=== PATIENT | male | born 1975 | race Caucasian/White ===

== ENCOUNTER 2022-07-25 17:56 | Emergency (ER) | payer SELFPAY ==
[2022-07-25] VITALS (7 sets, daily range): BP systolic 111–162; BP diastolic 72–108; PULSE 93–104; RESP 17–20; TEMP 36.6–37; O2SAT 93–96; BMI 29.0
--- NOTE | 2022-07-25 19:01 | ED_ITS ---
HPI - Alcohol General Chief Complaint: ETOH/Substance Use Stated Complaint: etoh Time Seen by Provider: 07/25/22 17:57 Source: EMS Mode of arrival: EMS Limitations: other (Intoxicated) History of Present Illness HPI narrative: Patient comes to the emergency room via ambulance. Bystanders found the patient sleeping in the hallway of his apartment. Since the patient can find he skis, lower himself down and took a nap. Patient states that he does not remember falling. Patient has been drinking. Seems that on arrival of EMS and PD, patient was combative. By the time that he reach emergency room, patient, co operative. Patient is significantly intoxicated but still able to answer some questions. Denies SI or HI. Related Data Allergies Allergy/AdvReac Type Severity Reaction Status Date / Time No Known Allergies Allergy Unverified 02/28/20 16:59 Review of Systems Review of Systems: Constitutional : No Weight loss, No Fever, No Chills, No Night Sweats, No Fatigue, No Malaise ENT/Mouth : No Hearing loss, No Ear Pain, No Nasal Congestion, No Sinus Pain, No Hoarseness, No sore throat, No Rhinorrhea, No Swallowing Difficulty Eyes: No Eye Pain, No Swelling, No Redness, No Foreign Body, No Discharge, No Vision Changes Cardiovascular : No Chest Pain, No SOB, No Dyspnea on Exertion, No Orthopnea, No Edema, No Palpitations Respiratory : No Cough, No Sputum, No Wheezing, No Smoke Exposure, No Dyspnea Gastrointestinal : No Nausea, No Vomiting, No Diarrhea, No Constipation, No abdominal Pain, No Hematochezia, No Melena Genitourinary : no irregular bleeding, No Dysuria, No Urinary Frequency, No Hematuria, No Urinary Incontinence, No Urgency, No Flank Pain, No Urinary Flow Changes, No Hesitancy Musculoskeletal : No joint pain, No Myalgias, No Joint Swelling Skin : No Skin Lesions, No rash Neuro : No Weakness, No Numbness, No Paresthesias, No Loss of Consciousness, No Dizziness, No Headache Psych : No Anxiety/Panic, No Depression, No SI/HI/AH/VH, not to drink alcohol Heme/Lymph: No Bruising, No Bleeding,No Lymphadenopathy Endocrine : No Polyuria, No Polydipsia, No Temperature Intolerance PMFSH Past Medical History Medical History Alcohol abuse Social History Social History Alcohol intake: current Smoked in Last 30 Days: Yes Use of substances other than those prescribed or required for medical reasons: No Physical Exam ED Vital Signs: Vital Signs - 24 hr 07/25/22 18:04 07/25/22 19:05 Temperature 98.6 F Pulse Rate 104 H Respiratory Rate 20 20 Blood Pressure 162/108 H Pulse Oximetry 96 Oxygen Delivery Method Room Air BMI result Body Mass Index 29.0 Const Other: Appearance: Alert. No acute distress, intoxicated Eyes: Pupils equal, round and reactive to light. ENT: Pharynx normal. Neck: Normal inspection. Neck supple. No lymph nodes noted. No crepitus CVS: Normal heart rate and rhythm. Pulses normal. Normal S1 and S2 Respiratory: No respiratory distress. Breath sounds normal. No Wheezing. No rales Abdomen: Soft and nontender. No rigidity. No distention. Skin: Skin warm and dry. Normal skin color. Normal skin turgor. Extremities: No lower extremity edema. No Lacerations. No Rash Neuro: Intoxicated, CN 2 through 12 grossly intact Psych: calm, cooperative, intoxicated Course Course Course Narrative: -patient is answering some questions, patient is significantly intoxicated. Patient states that he wants to drive his car and drive home. Patient informed that he came here by ambulance -patient trying to walk away. Patient has very unsteady gait. Patient had to be encouraged by security to stay in his bed. Patient offered p.o. medications, patient declined, patient keeps trying to leave but his nurses redirecting him. -patient states that he does not have anyone to call to pick him up. We will keep the patient in the emergency room until he is sober. At this time, even if patient wants to leave against medical advice, becoming verbally abusive towards the nurses. I will not be discharging him, patient is very intoxicated, cannot walk straight, has no sober ride, patient insisting that he wants to drive home, although his car is not here. So far, patient is somewhat redirectable. If patient's behavior escalated, we may have to chemically/physically restrain him. -19:07 patient becoming aggressive, throwing what ever he can find in the room towards the nurses, hitting the isabel. Patient will be chemically restrained. -patient was medicated with 50 mg of IM Benadryl, 5 mg Haldol, 2 mg IM Ativan. Medications Administered Discontinued Medications Generic Name Dose Route Start Last Admin Trade Name Freq PRN Reason Stop Dose Admin Diphenhydramine HCl 50 mg 07/25/22 19:07 07/25/22 19:10 Diphenhydramine Hcl 50 Mg/Ml Vial IM 07/25/22 19:08 50 mg ONCE ONE Administration Haloperidol Lactate 5 mg 07/25/22 19:07 07/25/22 19:10 Haloperidol Lactate 5 Mg/Ml Vial IM 07/25/22 19:08 5 mg STAT STA Administration Lorazepam 2 mg 07/25/22 18:25 07/25/22 18:35 Lorazepam 1 Mg Tablet PO 07/25/22 18:26 Not Given ONCE ONE Lorazepam 2 mg 07/25/22 19:07 07/25/22 19:10 Lorazepam 2 Mg/Ml Vial IM 07/25/22 19:08 2 mg STAT STA Administration Discharge Plan Discharge Clinical Impression: Alcoholic intoxication Patient Disposition: Still a Patient Interventions: [place]ñuel[place]-Suicide Risk Severity Scale Last Done: 07/25/22 18:17
[2022-07-25] MEDS: LORazepam 2 MG/ML VIAL IM (19:10)
[2022-07-25] MEDS: diphenhydrAMINE HCL 50 MG/ML VIAL IM (19:10)
[2022-07-25] MEDS: Haloperidol Lactate 5 MG/ML VIAL IM (19:10)
--- NOTE | 2022-07-25 19:15 | PC.NURSE ---
Pt verbally agressive towards staff, throwing food tray in room and ripped off wrist band. Pt gaint is unsteady under alcohol influence. Pt medicated stat Per MAR doctor order.
--- NOTE | 2022-07-25 19:23 | PC.NURSE ---
Security called to assist with patient. Pt assited in laying supine position. Pt eyes are open hands over forehead.
--- NOTE | 2022-07-25 19:37 | MHC.RECOVSUP ---
? Reason for consult: Recovery Support o Current location: ED 16? o Identified substance use concern: AUD ? Additional information:?Pt combative and was not seen at this time.
--- NOTE | 2022-07-25 19:54 | PC.NURSE ---
19:25 Pt walked into hallway not wearing bryan starting hitting nurse station counter in middle of ED yelling at nurses using profanity. Pt gait is unsteady while pt is on his feet Security called to assist nurses with patient. Pt was able to cooperate and get himself to bed. Pt agreed to fall asleep.
--- NOTE | 2022-07-25 20:02 | PC.NURSE ---
1953 Pt laying on left side yes closed respirations even and unlabored. No respiratory distress noted.
--- NOTE | 2022-07-25 20:44 | PC.NURSE ---
2010 Pt continues to lay on left side of body, eyes closed. RR 20 respirations even and unlabored.
[2022-07-26 01:55] VITALS: BP 105/62; PULSE 80; RESP 19; TEMP 36.6; O2SAT 94
[2022-07-26 04:01] VITALS: BP 119/75; PULSE 79; RESP 17; O2SAT 94
--- NOTE | 2022-07-26 05:19 | PC.NURSE ---
PT CLIVE x4 ambulatory. RN handed pt clothes. Pt got dressed and ambulated to bathroom pending discharge.
== END 2022-07-26 05:33 | disposition home or self-care (01) ==
PROVIDERS: Emergency Provider Emergency Medicine
DX: F10.20 Alcohol dependence, uncomplicated (principal); Y90.8 Blood alcohol level of 240 mg/100 ml or more
CPT/HCPCS: 96372; 99284; J1200; J2060

== ENCOUNTER 2024-12-18 17:31 | Emergency (ER) | payer OTHER, SELFPAY ==
--- NOTE | ~2024-12-18 | CT_ITS ---
CLINICAL HISTORY: Right flank pain left lower quadrant pain CT abdomen and pelvis without contrast Comparison: None provided Findings: The lung bases are clear. Unremarkable gallbladder and solid organs. No urolithiasis. No bowel obstruction, pneumoperitoneum, or pneumatosis. Fecalization of distal ileal loops is seen. Scattered diverticulosis of the descending and sigmoid colon with prior surgical anastomosis. Pelvic contents unremarkable. Normal appendix. The bones are intact. IMPRESSION: No acute findings. Fecalization of distal ileal loops may represent chronic constipation or chronic inflammatory bowel disease such as Crohn's disease. Scattered diverticulosis of the descending and sigmoid colon without evidence of acute diverticulitis. No hydronephrosis or nephrolithiasis. Mild bilateral nonspecific perinephric stranding. Urinary bladder is mostly contracted. Correlate with urinalysis. This document has been electronically signed by: Lorena Velásquez MD on 12/18/2024 22:34:30
[2024-12-18 17:49] VITALS: BP 142/81; PULSE 94; RESP 18; TEMP 36.8; O2SAT 96; BMI 31.3
--- NOTE | 2024-12-18 17:52 | ECG_ITS ---
Test Reason : ABD PAIN Blood Pressure : */* mmHG Vent. Rate : 89 BPM Atrial Rate : 89 BPM P-R Int : 238 ms QRS Dur : 94 ms QT Int : 354 ms P-R-T Axes : 11 -35 1 degrees QTcB Int : 430 ms Sinus rhythm with 1st degree A-V block Left axis deviation Incomplete right bundle branch block Possible Anterior infarct , age undetermined Abnormal ECG When compared with ECG of 08-Jan-2013 21:23, QRS axis Shifted left Borderline criteria for Anterior infarct are now Present Referred By: Dallin Arce Electronically Signed By: Javid Mejia
--- NOTE | 2024-12-18 17:53 | ED.GENADULT ---
HPI - General Adult General Chief complaint: Abdominal Pain Stated complaint: Back pain, abd pain Time Seen by Provider: 12/18/24 20:22 Source: patient Mode of arrival: ambulatory Limitations: no limitations History of Present Illness ED Provider: HPI narrative: Patient's history of diverticulitis in the past status post partial colectomy been doing much better for last few years noticed pain in the right flank and lower abdomen for last 1 week got worse in last 2 days no fever no chills no blood in his stool patient has had last bowel movement yesterday no urinary complaints no history of kidney stone patient complaining of pain in the right flank for last 2 days and diffuse abdominal discomfort for last 1 week Related Data Previous Rx's ?Medication ?Instructions ?Recorded polyethylene glycol 3350 17 17 g PO DAILY PRN Constipation 12/18/24 gram/dose oral powder (Miralax) #238 grams Allergies Allergy/AdvReac Type Severity Reaction Status Date / Time No Known Allergies Allergy Verified 12/18/24 17:51 Review of Systems Review of Systems: Yes all other systems are reviewed and are negative [facility] Past Medical History Medical History Diverticulitis Alcohol abuse Surgical History (Updated 12/18/24 @ 21:51 by Cuco Burns MD) History of partial colectomy Social History Social History Alcohol intake: current Alcohol intake frequency: 3 or more drinks per day Alcohol type: beer Physical Exam ED Vital Signs: Vital Signs - 24 hr 12/18/24 17:49 Temperature 98.3 F Pulse Rate 94 Respiratory Rate 18 Blood Pressure 142/81 H Pulse Oximetry 96 Oxygen Delivery Method Room Air BMI result Body Mass Index 31.3 Appearance: Alert. Oriented X3. No acute distress. Eyes: PERRLA, No Nystagmus ENT: Pharynx normal. Oral Mucosa moist Neck: Normal inspection. Neck supple. CVS: Normal heart rate and rhythm. Pulses normal. Respiratory: No respiratory distress. Equal air entry bilateral, no wheezing/rales/rhonchi Abdomen: Soft and nontender. Bowel sounds are present, no mass palpable, no CVA tenderness Skin: Skin warm and dry. Normal skin color. Normal skin turgor. Extremities: No lower extremity edema. No calf tenderness Neuro: Oriented X 3. No motor deficit. No sensory deficit.No cerebellar signs , cranial nerves II-XII intact Course Course Course Narrative: RME: 9 year male presents to ED for 4 right flank back abdominal pain with nausea vomiting and lightheadedness for past couple of days. Patient denies any genitourinary symptoms. Labs EKG ordered. Medications Administered Discontinued Medications Generic Name Dose Route Start Last Admin Trade Name Timiq PRN Reason Stop Dose Admin Sodium Chloride 1,000 mls @ 999 mls/hr 12/18/24 21:03 12/18/24 23:57 Ns IV 12/18/24 22:03 Infused .Q1H1M ONE Infusion Magnesium Hydroxide 30 ml 12/18/24 23:50 12/19/24 00:08 Milk Of Magnesia 30 Ml Oral.Susp PO 12/18/24 23:51 30 ml ONCE ONE Administration Morphine Sulfate 4 mg 12/18/24 21:04 12/18/24 22:15 Morphine Sulfate 4 Mg/Ml Cartridge IVPUSH 12/18/24 21:05 4 mg ONCE ONE Administration Protocol Ondansetron HCl 4 mg 12/18/24 21:04 12/18/24 22:14 Ondansetron Hcl 4 Mg/2 Ml Vial IVPUSH 12/18/24 21:05 4 mg ONCE ONE Administration Medical Decision Making Differential Diagnosis Differential Diagnoses: The differential diagnosis associated with the presentation includes Diverticulitis/UTI/kidney stone Lab Data 12/18/24 18:13 12/18/24 18:13 Labs: Lab Results 12/18/24 12/18/24 12/18/24 Range/Units 18:13 19:35 22:40 WBC 12.7 H (4.8-10.8) X10*3/uL RBC 4.95 (4.60-5.80) X10*6/uL Hgb 15.2 (14.0-18.0) g/dl Hct 44.1 (42.0-52.0) % MCV 89.1 (80.0-98.0) fL MCH 30.7 (27.0-33.0) pg MCHC 34.5 (31.0-36.0) g/dl RDW 14.5 (11.0-16.0) % Plt Count 253 (160-400) X10*3/uL MPV 10.6 (9.4-12.4) fL Immature Gran % (Auto) 0.7 H (0.0-0.4) % Neut % (Auto) 66.6 (45-73) % Lymph % (Auto) 21.7 (20-40) % Tompkins % (Auto) 7.9 (2-11) % Eos % (Auto) 2.4 (0-4) % Baso % (Auto) 0.7 (0-2) % Lymph # (Auto) 2.8 (1.2-4.9) X10*3/uL Tom[place]kins # (Auto) 1.0 (0.1-1.2) X10*3/uL Eos # (Auto) 0.3 (0.0-0.4) X10*3/uL Baso # (Auto) 0.1 (0.0-0.2) X10*3/uL Abs Immat Gran (auto) 0.09 H (0.00-0.03) X10*3/uL Absolute Neuts (auto) 8.5 H (2.0-8.3) x10*3/uL Absolute Nucleated RBC 0.000 (0.0-0.012) X10*3/uL Nucleated RBC % (auto) 0.0 (0.0-0.2) /100WBC Sodium 138 (135-145) mmol/L Potassium 4.6 (3.3-5.1) mmol/L Chloride 108 (96-108) mmol/L Carbon Dioxide 19 L (22-29) mmol/L Anion Gap 16 (12-20) BUN 14 (9-16) mg/dL Creatinine 0.84 (0.5-1.4) mg/dL Estim Creat Clear Calc 123.0 Estimated GFR > 60 Random Glucose 101 (60-115) mg/dL Lactic Acid 0.8 (0.5-2.0) mmol/L Calcium 9.2 (8.4-10.2) mg/dL Total Bilirubin 0.2 (0.0-1.0) mg/dL AST 33 (5-37) U/L ALT 40 (0-40) U/L Alkaline Phosphatase 67 (39-117) U/L Troponin I High Sens < 2.7 (<3.5-35.0) ng/L Total Protein 7.8 (6.5-8.0) g/dL Albumin 4.6 (3.5-5.0) g/dL Lipase 37 (8-78) U/L Urine Color Yellow Urine Appearance Clear Urine pH 5.5 (5.0-9.0) Ur Specific [place] >= 1.030 H (1.005-1.025) Urine Protein Negative (Neg-Trace) mg/dL Urine Glucose (UA) Negative (Negative) mg/dL Urine Ketones Trace (Negative) mg/dL Urine Blood Negative (Negative) Urine Nitrite Negative (Negative) Ur Leukocyte Esterase Negative (Negative) Discharge Plan Discharge Clinical Impression: Constipation Patient Disposition: Home, Self-Care Instructions: Constipation (ED) Additional Instructions: Drink plenty of fluids Your CT scan of the abdomen is negative for acute showed lot of stool Having increased fiber in your food Take MiraLax daily Prescriptions: New polyethylene glycol 3350 [Miralax] 17 gram/dose powder 17 g PO DAILY PRN (Reason: Constipation) Qty: 238 0RF Interventions: ED Discharge Assessment Last Done: 12/19/24 00:11 Discharge Date/Time: 12/19/24 00:14 Print Language: Syrian
[2024-12-18 18:18] LABS: MANUAL DIFF FLAG NO
[2024-12-18 18:34] LABS: Alanine Aminotransferase 40 U/L (0-40); Albumin Level 4.6 g/dL (3.5-5.0); Alkaline Phosphatase 67 U/L (39-117); Anion Gap 16 (12-20); Aspartate Amino Transferase 33 U/L (5-37); Blood Urea Nitrogen 14 mg/dL (9-16); Calcium 9.2 mg/dL (8.4-10.2); Carbon Dioxide 19 mmol/L (22-29); Chloride 108 mmol/L (96-108); Creatinine Clr Calc Pharmacy 123.0; Estimated Glomerular Filt Rate > 60; Lipase 37 U/L (8-78); Potassium 4.6 mmol/L (3.3-5.1); Sodium 138 mmol/L (135-145); Total Protein 7.8 g/dL (6.5-8.0)
[2024-12-18 18:35] LABS: Hematocrit 44.1 % (42.0-52.0); Hemoglobin 15.2 g/dl (14.0-18.0); Imm Gran Abs Auto 0.09 X10*3/uL (0.00-0.03); Imm Gran Pct Auto 0.7 % (0.0-0.4); Lymphocytes Absolute Auto 2.8 X10*3/uL (1.2-4.9); Mean Corpuscular HGB Conc 34.5 g/dl (31.0-36.0); Mean Corpuscular Hemoglobin 30.7 pg (27.0-33.0); Mean Corpuscular Volume 89.1 fL (80.0-98.0); NRBC Abs Auto 0.000 X10*3/uL (0.0-0.012); NRBC Pct Auto 0.0 /100WBC (0.0-0.2); Platelet Count 253 X10*3/uL (160-400); Red Blood Count 4.95 X10*6/uL (4.60-5.80); White Blood Count 12.7 X10*3/uL (4.8-10.8)
[2024-12-18 18:40] LABS: Troponin-I High Sensitivity < 2.7 ng/L (<3.5-35.0)
[2024-12-18 19:57] LABS: Appearance Urine Clear; Glucose Urine UA Negative (Negative); PH 5.5 (5.0-9.0); Specific Gravity - Urine >= 1.030 (1.005-1.025)
[2024-12-18 23:03] VITALS: BP 138/95; PULSE 71; RESP 16; TEMP 36.8; O2SAT 97
[2024-12-19] MEDS: Milk of Magnesia 30 ML ORAL.SUSP PO (00:08)
[2024-12-19 00:10] VITALS: BP 140/98; PULSE 81; RESP 16; TEMP 36.7; O2SAT 98
[2024-12-19 00:11] VITALS: BP 140/98; PULSE 81; RESP 16; TEMP 36.7; O2SAT 98
== END 2024-12-19 00:14 | disposition home or self-care (01) ==
PROVIDERS: Physician Assistant; Emergency Provider Internal Medicine; PCP Internal Medicine
DX: K59.00 Constipation, unspecified (principal); R10.30 Lower abdominal pain, unspecified
CPT/HCPCS: 36415; 74176; 80053; 81003; 83605; 83690; 84484; 85025; 87040; 93005; 96361; 96374; 96375; 99284; 99285; J2270; J2405

== ENCOUNTER → 2024-12-18 17:52 | Outpatient (BNV) | payer OTHER, SELFPAY | PROVIDERS: Emergency Provider Internal Medicine; PCP Internal Medicine; Visit Provider Internal Medicine Cardiovascular Disease | DX: I44.0 Atrioventricular block, first degree (principal); I45.10 Unspecified right bundle-branch block | CPT/HCPCS: 93010 ==

== ENCOUNTER → 2024-12-18 21:05 | Outpatient (BNV) | payer OTHER, SELFPAY | PROVIDERS: Emergency Provider Internal Medicine; PCP Internal Medicine; Visit Provider Student in an Organized Health Care Education/Training Program | DX: K57.30 Diverticulosis of large intestine without perforation or abscess without bleeding (principal) | CPT/HCPCS: 74176 ==